=== PATIENT | female | born 1950 | race Caucasian/White ===

== ENCOUNTER → 2024-03-19 13:57 | Outpatient (REF) | payer MEDICARE, BC, SELFPAY | LOC: WDC 13:57 | PROVIDERS: ATTENDING PHYSICIAN Nurse Practitioner Adult Health | DX: E05.90 Thyrotoxicosis, unspecified without thyrotoxic crisis or storm (principal); Z12.31 Encounter for screening mammogram for malignant neoplasm of breast | CPT/HCPCS: 77063; 77067; 93306 ==